=== PATIENT | male | born 1980 | race Two or more races ===

== ENCOUNTER 2024-10-17 16:44 | Emergency (ER) | payer OTHER ==
[~2024-10-17] VITALS: Ht 180.3 cm; Wt 93.0 kg
[2024-10-17] MEDS ORDERED: NORVASC5 MG PO (17:30)
[2024-10-17] MEDS ORDERED: 0.9 % SODIUM CHLORIDE 500 ML IV ONE (18:15)
[2024-10-17] MEDS ORDERED: BARIUM SULFATE 450 ML ORAL.SUSP PO ONE (18:30)
[2024-10-17 19:05] LABS: BASO % 0.8 % (0.1-1.2); EOS # 0.09 (0.04-0.54); EOS % 0.8 % (0.7-7.0); HEMATOCRIT 43.3 % (40.1-51.0); HEMOGLOBIN 14.3 g/dL (13.7-17.5); LYMPH # 2.65 (1.18-3.74); LYMPH % 23.6 % (19.3-53.1); MEAN CORPUSCULAR HEMOGLOBIN 27.6 pg (25.6-32.2); MONO # 1.05 (0.24-0.82); MONO % 9.3 % (4.7-12.5); NEUT % 64.9 % (34.0-71.1); PLATELET COUNT 324 K/uL (163-369); RED BLOOD COUNT 5.19 M/uL (4.63-6.08); RED CELL DISTRIBUTION WIDTH 14.4 % (11.6-14.4)
[2024-10-17 19:30] LABS: ALBUMIN 3.5 gm/dL (3.4-5.0); BILIRUBIN TOTAL 0.36 mg/dL (0.3-1.2); CALCIUM 9.5 mg/dL (8.5-10.1); CREATININE SERUM 0.89 mg/dL (0.70-1.30); GFR 92.86; GLOBULINA 4.2 G/DL (2.4-3.5); POTASSIUM 3.88 mEq/L (3.5-5.1); TOTAL PROTEIN 7.7 gm/dL (6.4-8.2)
[2024-10-17 19:52] LABS: INR 0.99; PARTIAL THROMBOPLASTIN TIME 27.3 SECONDS (22.0-34.0); PROTHROMBIN TIME 10.8 SECONDS (9.0-11.5)
[2024-10-17 20:20] LABS: URINE APPEARANCE Clear; URINE BILIRRUBIN Negative (NEGATIVE); URINE BLOOD Negative; URINE COLOR Yellow; URINE GLUCOSE Negative (NEGATIVE); URINE KETONE Negative (NEGATIVE); URINE LEUKOCYTE Negative; URINE NITRATE Negative; URINE PROTEIN Negative (NEGATIVE); URINE UROBILINOGEN 0.2 E.U./dl
[2024-10-17 20:48] LABS: URINE BACTERIA 1.2 uL (0.0-1933); URINE EPITHELIAL CELLS 0.1 uL (0.0-38.8); URINE WBC 0.4 uL (0.0-23.2)
[2024-10-17] MEDS ORDERED: INTESTINEX680 M1 PO (22:35)
== END 2024-10-17 22:48 ==
LOC: ER 16:48
PROVIDERS: Emergency Medicine
DX: K62.5 Hemorrhage of anus and rectum (principal); R10.32 Left lower quadrant pain; I10 Essential (primary) hypertension; Z87.09 Personal history of other diseases of the respiratory system

== ENCOUNTER 2025-04-19 07:00 | Day surgery (SDC) | payer OTHER ==
[2025-04-14 13:11] VITALS: BP 139/89
[~2025-04-19] VITALS: Ht 180.3 cm; Wt 95.3 kg
[~2025-04-19 07:00] MED LIST: INTESTINEX680 M1 PO; NORVASC5 MG PO
[2025-04-19] MEDS ORDERED: BUPIVACAINE HCL/MPF 0.5% 30ML VIAL ONE (07:09)
[2025-04-19] MEDS ORDERED: POVIDONE-IODINE 118 ML BOTT TOP ONE (07:09)
[2025-04-19] MEDS ORDERED: CEFTRIAXONE SODIUM 2,000 MG VIAL ONE (07:09)
[2025-04-19] MEDS ORDERED: DIBUCAINE 30 GM TUBE ONE (07:09)
[2025-04-19] MEDS ORDERED: HEMOSTATIC MATRIX 1 KIT KIT TOP ONE (07:09)
[2025-04-19] MEDS ORDERED: LIDOCAINE HCL 1%/EPINEPHRINE 20ML VIAL IJ ONE (07:09)
[2025-04-19] MEDS ORDERED: METRONIDAZOLE/SODIUM CHLORIDE 500 MG/100 ML PIGGYBACK IV ONE (07:10)
[2025-04-19] MEDS ORDERED: PERCOCET 5-3251 EACH PO (07:58)
[2025-04-19] MEDS ORDERED: RECTICARE30 GM TOP (07:59)
== END 2025-04-19 11:40 | disposition home or self-care (01) ==
LOC: CIR.AMB 07:00
PROVIDERS: ATTEND Surgery
DX: D12.9 Benign neoplasm of anus and anal canal (principal); A63.0 Anogenital (venereal) warts; K62.0 Anal polyp; K62.1 Rectal polyp